=== PATIENT | female | born 1965 | race Caucasian/White ===

== ENCOUNTER 2017-08-20 07:22 | Day surgery (SDC) | payer OTHER, SELFPAY ==
[2017-08-20 08:22] VITALS: BP 147/88; PULSE 87; RESP 16; TEMP 36.2; O2SAT 100; BMI 24.4
--- NOTE | 2017-08-20 09:04 | HP.PCM_ITS ---
Past Medical/Surgical History - Planned Operation Planned Operative Procedure/s: colonoscopy Date of Operative Procedure: 08/20/17 Permit Signed: No S.O.S: No Is This Patient Having a Total Joint: No - Previous Hospitalizations/Surgeries HX Hospitalizations: No HX of Surgeries: colonoscopy. hysterectomy. kidney stone Any Problems With Anesthesia: No You/Your Family Experience Fever (Hyperthermia) With Anes: No Cholinesterase deficiency: No - Cardiovascular Hx Chest Pain within Last 2 months: No Hx of Irregular Heartbeat and/or Afib: No Hx Heart Attack: No Hx Congestive Heart Failure: No Hx Rheumatic Fever: No Hx Hypertension: No Hx Internal Defibrillator: No Hx Pacemaker: No Hx Cardiac Catheterization: No Hx Cardiac Surgery/Stents/Etc.: No Hx Stress Test: No HX Edema: No Hx Pain in Legs when Walking/Leg Cramps: Yes - Respiratory Chronic Cough: No HX of Shortness of Breath: Yes - sob with 2 flights of stairs Hoarseness: No Hx Chronic Obstructive Pulmonary Disease (COPD): No Hx Asthma: No Hx Emphysema: No Hx Sleep Apnea: No Hx Oxygen Use at Home: No Hx Respiratory Tract Infection/Cold (presently): No Do You Snore Loudly (louder than talking or can be heard): Yes Do You Often Feel Tired/ Fatigued/ Sleepy Dring Daytime?: No Has Anyone Observed You Stop Breathing During Sleep?: No Result (for STOP score): Negative Hx Smoking: No Smoking Status: Never smoker - Gastrointestinal Hx Gastroesophageal Reflux: Yes Controlled With Meds: No - no meds Hx Gastrointestinal Disorders: Yes - ibs Hx Gastrointestinal Bleed: Yes - in the past Hx Ulcer: No - . Hx Hiatal Hernia: No Difficulty Chewing/Swallowing: No Recent Onset of Swallowing Problems: No Special diet followed at home: No Hx Unplanned Weight Loss of 20#: No HX Unplanned Weight Gain of 20#: No - Neurological Hx Seizures: No HX Syncope/Blackout Spells/Unconsciousness: No Hx CVA/Stroke: No Hx Transient Ischemic Attacks (TIA): No Hx Multiple Sclerosis: No Hx Parkinson's Disease: No Hx Head/Neck Injury: No Hx Headaches: No Hx Back Injury/Pain: No Recent Onset of Speech Difficulty: No Restless Legs: No Does patient have nerve stimulator: No Patient instructed to have device shut off: No Rep notified?: No - Blood Disorder Hx Leukemia: No Bleeding Tendencies: No Hx Deep Vein Thrombosis: No Hx High Cholesterol: No Blood Transmitted Disease: No Hx Hepatitis: No Hx Cirrhosis: No Hx Anemia: No Hx Blood Disorders: No - Reproduction : No Is Patient Lactating: No Hx Hysterectomy: Yes Hx Tubal Ligation: No Are You Post Menopause: Yes - Genitourinary Hx Renal Disease: No - Musculoskeletal Hx Arthritis: Yes Hx Rheumatoid Arthritis: No Hx Gout: No Recent Onset of an Orthopedic Problem: No - Endocrine Hx Diabetes: No Thyroid Disease: No Hx Steroid Therapy: No - Psycho/Social Hx Substance Use: No Hx Alcohol Use: No Hx Anxiety: No Hx Depression: No Mental Illness: No Hx Dementia: No - Miscellaneous Hx Cancer: No Recent Exposure to Contagious Disease: No Active MRSA: No Hx of C-Diff: No Any Loose Teeth: No Allergies NSAIDS (Non-Steroidal Anti-Inflamma Allergy (Verified 08/18/17 16:08) Hives pseudoephedrine Allergy (Verified 08/18/17 16:08) slurred speech/confusion Home Medications Medication Instructions Recorded Calcium Carbonate/Vitamin D3 1 each PO DAILY 08/18/17 [Calcium 500-Vit D3 600 Tablet] Multivitamin [Multiple Vitamins] 1 each PO DAILY 08/18/17 [place]-3 Fatty Acids/Fish Oil [Fish 1 each PO DAILY 08/18/17 Oil 1,000 mg Capsule] - Discharge Is Pt Admitted From a Halfway, or a Halfway: No Who Could Help: family After D/C, Where Do you Plan to Go: Return Home - Physical Exam General: Alert, Oriented x3, Cooperative Lungs: Normal air movement Cardiovascular: Regular rate, Regular Rhythm Abdomen: Soft, Non Tender, Non-Distended Vital Signs Temp Pulse Resp BP Pulse Ox 97.1 F L 87 16 147/88 H 100 08/20/17 08:22 08/20/17 08:22 08/20/17 08:22 08/20/17 08:22 08/20/17 08:22 Oxygen Delivery Method Room Air Weight: 151 lb 7.321 oz Body Mass Index (BMI) 24.4 Assessment/Plan 52-year-old female here for screening colonoscopy 1. Patient reports she had a normal colonoscopy 6 years ago. She does have a family history of colon cancer in her father at a young age. She is not currently having any issues and no blood in her stool or abdominal pain. She has no inadvertent weight loss. 2. I explained endoscopy in detail to the patient. I explained the risks including but not limited to stroke or heart attack with anesthesia, perforation of the GI tract, bleeding, infection. I explained that any of these could necessitate further emergency surgery. The patient understands and all questions were answered sufficiently. The patient wishes to proceed with procedure. Pablito Morfin MD Pager: [facility] [address], [facility] [address] [place] [address] Office: Surgery Risks - Colonoscopy Risks Include but are not Limited To: Risks include but are not limited to: Bleeding, perforation requiring further surgery, inability to complete colonoscopy requiring barium enema.
[2017-08-20 09:36] VITALS: BP 135/91; BP 147/88; PULSE 89; RESP 16; TEMP 36.6; O2SAT 100
--- NOTE | 2017-08-20 09:37 | PCM.OPRPT ---
Problem List (1) Screen for colon cancer Status: Acute Report of Operation Date of Procedure: 08/20/17 Pre-Operative Diagnosis: Screening colonoscopy, family history of colon cancer Post-Operative Diagnosis: Normal colonoscopy Surgery/Procedure Performed:: Colonoscopy Specimen's removed: None Description of Procedure: The major risks and benefits associated with the procedure were explained to the patient in detail. The patient verbalized understanding and agreement with the same. The patient was brought to the endoscopy suite. After adequate sedation was achieved, the patient was placed in the left lateral decubitus position and a digital rectal exam was performed. This examination was within normal limits. A well-lubricated colonoscope was then inserted into the rectum and advanced under direct visualization to the level of the cecum. The bowel prep was good. The cecum was identified by both visual and anatomic landmarks. A photograph was taken of the end of the cecum. The scope was then fully withdrawn while examining the color, texture, anatomy and integrity of the mucosa from the cecum to the anal canal. The findings were consistent with normal colonic mucosa. Over 6 minutes were taken to examine the colonic mucosa. Upon reaching the rectum the scope was retroflexed to examine the distal rectal vault. The scope was then straightened and was completely retrieved upon exiting the anal canal and the procedure was terminated. The patient was then transferred to the recovery room in stable condition. Recommendations for follow up: 5 years due to family history
[2017-08-20 09:41] VITALS: BP 141/90; BP 147/88; PULSE 85; RESP 16; O2SAT 99
[2017-08-20 09:46] VITALS: BP 136/93; BP 147/88; PULSE 79; RESP 16; O2SAT 100
[2017-08-20 09:51] VITALS: BP 140/94; BP 147/88; PULSE 81; RESP 16; TEMP 36.4; O2SAT 99
[2017-08-20 10:22] VITALS: BP 147/88
== END 2017-08-20 10:20 | disposition home or self-care (01) ==
LOC: EN 07:24 → AC 07:25
PROVIDERS: Family Provider Preventive Medicine Occupational Medicine; PCP Preventive Medicine Occupational Medicine; Visit Provider Surgery
PROC: 0DJD8ZZ Inspection of Lower Intestinal Tract, Via Natural or Artificial Opening Endoscopic (ICD-10-PCS; CPT 45378; principal; 2017-08-20 08:55)
DX: Z12.11 Encounter for screening for malignant neoplasm of colon (principal); Z80.0 Family history of malignant neoplasm of digestive organs; K58.9 Irritable bowel syndrome, unspecified; M19.90 Unspecified osteoarthritis, unspecified site
CPT/HCPCS: 45378; J7120

== ENCOUNTER 2022-10-02 11:46 | Emergency (ER) | payer OTHER, SELFPAY ==
[2022-10-02 11:46] VITALS: BP 145/84; PULSE 79; RESP 16; TEMP 36.3; O2SAT 100; BMI 26.6
--- NOTE | 2022-10-02 13:18 | EKG12_ITS ---
Test Reason : Blood Pressure : / mmHG Vent. Rate : 066 BPM Atrial Rate : 066 BPM P-R Int : 144 ms QRS Dur : 084 ms QT Int : 392 ms P-R-T Axes : 048 012 039 degrees QTc Int : 410 ms Normal sinus rhythm with sinus arrhythmia Normal ECG Confirmed by ALFONSO GUERRERO, EMMA ([id number]), make up editor AUSTYN DE SANTIAGO ([id number]) on 10/05/2022 12:20:28 P M Referred By: MICA Confirmed By:FRANCESCO HAMILTON MD
--- NOTE | 2022-10-02 13:19 | EDS_ITS ---
HPI <ADAMS Thomas - Last Filed: 10/02/22 14:44> History of Present Illness Chief Complaint: General Illness Narrative Narrative: Patient presents today with feelings of lightheadedness and muscular cramps in her legs that she noticed earlier this afternoon. She states that she has only drink coffee today and is not sure if she is dehydrated. She states she does sometimes get a little lightheaded when standing up or after bending over but today felt that way while she was standing. He has felt this way intermittently over the past month or so but today is worse. She states the only thing she has had to eat today is 1 eggo waffle and a bag of cheese suzie and is a borderline diabetic. PMH includes hypertension. She denies any fever, chills, recent illness, chest pain, abdominal pain, nausea, vomiting, diarrhea, and urinary symptoms. PFSH <ADAMS Thomas - Last Filed: 10/02/22 14:44> PFSH Medical History (Updated 10/02/22 @ 14:30 by ADAMS Thomas) Hypertension IBS (irritable bowel syndrome) Rheumatoid arthritis Tachycardia Home Medications multivitamin (Multiple Vitamins tablet) 1 ea PO DAILY 08/18/17 [History Last Taken Unknown] omega-3 fatty acids-fish oil 340 mg-1,000 mg capsule (Fish Oil) 1 ea PO DAILY 08/18/17 [History Last Taken Unknown] lisinopril 2.5 mg tablet 2.5 mg PO DAILY 10/02/22 [History Last Taken Unknown] loratadine 10 mg tablet (Claritin) 10 mg PO DAILY 10/02/22 [History Last Taken Unknown] metoprolol succinate 50 mg tablet,extended release 24 hr 50 mg PO DAILY 10/02/22 [History Last Taken Unknown] Allergy/AdvReac Type Severity Reaction Status Date / Time NSAIDS (Non-Steroidal Allergy Hives Verified 10/02/22 11:48 Anti-Inflamma pseudoephedrine Allergy slurred Verified 10/02/22 11:48 speech/confusion Surgical History (Updated 10/02/22 @ 13:39 by Yari Sotelo) H/O: hysterectomy Social History Smoking Status: Never smoker ROS <ADAMS Thomas - Last Filed: 10/02/22 14:44> ROS ED Constitutional Constitutional ED: Denies chills, fever(s) or sweats Eyes Eyes: Denies blurry vision or diplopia Cardiovascular Cardiovascular: Denies chest pain or palpitations Respiratory/Chest Respiratory/Chest: Denies cough or dyspnea Gastrointestinal Gastrointestinal: Denies abdominal pain, diarrhea, nausea or vomiting Genitourinary Genitourinary ED: Denies dysuria, hematuria or urinary urgency Musculoskeletal Musculoskeletal: Denies arthralgias, back pain, myalgias or neck pain Integumentary Denies abscess, Abrasions or rash Neurologic Neurologic: Denies confusion, dizziness or paresthesias Psychiatric Psychiatric: Denies anxiety, depression, suicidal ideation or suicidal thoughts EXAM <ADAMS Thomas - Last Filed: 10/02/22 14:44> Physical Exam Const Vital Signs: 10/02/22 11:46 10/02/22 13:29 10/02/22 13:39 Temperature 97.4 F L Temperature Source Temporal Pulse Rate 79 Pulse Rate [Lying] 62 Pulse Rate [Sitting (for 1 minute prior to obtaining)] 59 L Pulse Rate [Standing (for 1 minute prior to obtaining)] 62 Respiratory Rate 16 Respiratory Effort Normal Non-Labored Respiratory Pattern Normal Blood Pressure 145/84 H Blood Pressure [Lying] 131/74 H Blood Pressure [Sitting (for 1 minute prior to obtaining)] 140/77 H Blood Pressure [Standing (for 1 minute prior to obtaining)] 130/82 H Blood Pressure Mean 104 Blood Pressure Mean [Lying] 93 Blood Pressure Mean [Sitting (for 1 minute prior to obtaining)] 98 Blood Pressure Mean [Standing (for 1 minute prior to obtaining)] 98 Pulse Ox 100 Oxygen Delivery Method Room Air Positive well nourished, well developed and no apparent distress General Appearance ED: well developed HEENT Reports normocephalic and head/scalp atraumatic Mouth ED: Yes moist mucous membranes normal Eyes PERRL and EOMs intact bilaterally Neck full ROM and supple Chest Wall inspection of chest normal Resp normal respiratory effort and clear to auscultation bilaterally Cardio regular rate and regular rhythm GI soft to palpation, non-tender, non-distended and no masses Back/Spine normal ROM and normal to inspection Extremity normal to inspection and full ROM Neuro oriented x3, CN's II-XII intact bilaterally, moves all extremities, no focal motor deficits and no sensory deficits noted Sensorium / Orientation: awake and alert Psych mental status grossly normal and thought process normal Skin no rashes or lesions noted and no wounds <Dr. Shantal Doe MD - Last Filed: 10/02/22 21:23> Physical Exam Const Vital Signs: 10/02/22 11:46 10/02/22 13:29 10/02/22 13:39 Temperature 97.4 F L Temperature Source Temporal Pulse Rate 79 Pulse Rate [Lying] 62 Pulse Rate [Sitting (for 1 minute prior to obtaining)] 59 L Pulse Rate [Standing (for 1 minute prior to obtaining)] 62 Respiratory Rate 16 Respiratory Effort Normal Non-Labored Respiratory Pattern Normal Blood Pressure 145/84 H Blood Pressure [Lying] 131/74 H Blood Pressure [Sitting (for 1 minute prior to obtaining)] 140/77 H Blood Pressure [Standing (for 1 minute prior to obtaining)] 130/82 H Blood Pressure Mean 104 Blood Pressure Mean [Lying] 93 Blood Pressure Mean [Sitting (for 1 minute prior to obtaining)] 98 Blood Pressure Mean [Standing (for 1 minute prior to obtaining)] 98 Pulse Ox 100 Oxygen Delivery Method Room Air MDM <ADAMS Thomas - Last Filed: 10/02/22 14:44> [facility] Narrative Medical decision making narrative: Patient presenting today due to feelings of lightheadedness she had earlier this afternoon. She is well-appearing and in no acute distress. She has felt this way over the past few months intermittently but today says it is worse. She is also having muscle cramps in her legs. She states she could be dehydrated as she has only had a couple coffee today and no water. Patient is also borderline diabetic and has only had a bag of chips and a waffle to eat today. CBC will be obtained to rule out leukocytosis and anemia, BMP to rule out electrolyte abnormality, dehydration, and to assess kidney function. Patient was given IV fluids. Orthostats are normal. On reexamination she is feeling better and she has been reassured. She has been under a lot of stress recently and her dad just had a heart attack this week. She is having difficult time at her job and feels overworked. I think patient's symptoms can be attributed to the stress she is under as well as not eating and drinking enough throughout the day. She will be discharged home in stable condition and is to follow-up with her PCP. She is comfortable with plan. Lab Data Attestation: I reviewed the patient's lab results. Lab results narrative: BC unremarkable, BMP unremarkable Labs: Laboratory Results - last 24 hr 10/02/22 10/02/22 13:32 13:32 WBC 5.1 RBC 4.43 Hgb 13.1 Hct 39.6 MCV 89.4 MCH 29.6 MCHC 33.1 RDW Std Deviation 37.9 RDW Coeff of Jose 11.7 Plt Count 211 MPV 11.3 Immature Gran % (Auto) 0.400 Neut % (Auto) 58.8 Lymph % (Auto) 28.0 [place] % (Auto) 9.6 Eos % (Auto) 2.4 Baso % (Auto) 0.8 Absolute Neuts (auto) 3.0 Absolute Lymphs (auto) 1.43 Nucleated RBC % 0 Sodium 141 Potassium 3.8 Chloride 107 Carbon Dioxide 26.0 Anion Gap 8 BUN 15 Creatinine 0.61 Estim Creat Clear Calc 93.77 Est GFR (MDRD) Af Amer 132 Est GFR (MDRD) Non-Af 109 BUN/Creatinine Ratio 24.8 H Glucose 138 H Calcium 9.4 EKG Initial EKG: Comments: 66 bpm, normal sinus rhythm, no ST elevation. Reviewed and interpreted by attending ED physician. <Dr. Shantal Doe MD - Last Filed: 10/02/22 21:23> [facility] Lab Data Labs: Laboratory Results - last 24 hr 10/02/22 10/02/22 13:32 13:32 WBC 5.1 RBC 4.43 Hgb 13.1 Hct 39.6 MCV 89.4 MCH 29.6 MCHC 33.1 RDW Std Deviation 37.9 RDW Coeff of Jose 11.7 Plt Count 211 MPV 11.3 Immature Gran % (Auto) 0.400 Neut % (Auto) 58.8 Lymph % (Auto) 28.0 [place] % (Auto) 9.6 Eos % (Auto) 2.4 Baso % (Auto) 0.8 Absolute Neuts (auto) 3.0 Absolute Lymphs (auto) 1.43 Nucleated RBC % 0 Sodium 141 Potassium 3.8 Chloride 107 Carbon Dioxide 26.0 Anion Gap 8 BUN 15 Creatinine 0.61 Estim Creat Clear Calc 93.77 Est GFR (MDRD) Af Amer 132 Est GFR (MDRD) Non-Af 109 BUN/Creatinine Ratio 24.8 H Glucose 138 H Calcium 9.4 Treatment and Re-Evaluation :: Patient seen and evaluated with RODRIGUE. I personally interviewed and examined the patient. I was involved in all aspects of patient's orders, interpretation of results, and treatment. Patient presents secondary to fatigue with lightheadedness and some muscle cramping in her legs. She is concerned that she may be dehydrated. She does admit that she is been under a lot of stress lately and thinks that could be contributing to her symptoms as well. Patient sitting upright in bed no acute distress. Nontoxic-appearing. Head and neck examination is unremarkable. Heart is regular rate and rhythm. Lung sounds are clear. Abdomen is soft and nontender. Neuro exam is normal. Patient placed on secured entrance monitor. Lab work reviewed and reveals no acute findings with no significant signs of dehydration. EKG is normal. Patient has been given a liter of IV fluids here on repeat evaluation she is resting comfortably. Test results are discussed with her as well as at bedside. She will continue to monitor her symptoms and return instructions have been provided. Discharge Plan Triage Chief Complaint: General Illness ED Midlevel Provider: Nicole Jacobo ED Provider: Shantal Doe Dx/Rx/DC Orders Clinical Impression: Light-headedness Instructions: ED Dizziness, Uncertain Cause Prescriptions: No Action multivitamin [Multiple Vitamins] 1 EACH tablet 1 ea PO DAILY Fish Oil 1 EACH capsule 1 ea PO DAILY metoprolol succinate 50 mg tablet extended release 24 hr 50 mg PO DAILY lisinopril 2.5 mg tablet 2.5 mg PO DAILY loratadine [Claritin] 10 mg Tablet 10 mg PO DAILY Primary Care Provider: John Ahn Referrals: John Ahn DO [Primary Care Provider] - 3-5 Days Activity Restrictions/Additional Instructions: Patient to drink plenty of water each day and follow-up with your PCP. Please return for any worsening of symptoms. Disposition Disposition: Home, Self Care Discharge Date/Time: 10/02/22 14:58
[2022-10-02 13:29] VITALS: BP 130/82; BP 131/74; BP 140/77; PULSE 59; PULSE 62
[2022-10-02] MEDS: 0.9% Normal Saline 1,000 ML 999 ML IV (13:34)
[2022-10-02 13:49] LABS: Absolute Lymphocyte Count 1.43 X10^3/uL (0.83-4.51); Basophil# 0.04 X10^3/uL; Basophil% 0.8 % (0-1); Eosinophil# 0.12 X10^3/uL; Eosinophils% 2.4 % (0-5); Hematocrit 39.6 % (37-47); Hemoglobin 13.1 g/dL (12.0-15.0); Lymphocyte # 1.43 X10^3/ul (0.83-4.51); Mean Corp Hgb Conc 33.1 g/dL (32-36); Mean Corpuscular Hgb 29.6 pg (27.0-32.0); Mean Corpuscular Volume 89.4 fL (81-99); Mean Platelet Vol. 11.3 fl (6.2-12.0); Monocyte# 0.49 X10^3/uL; Monocyte% 9.6 % (0-10); NRBC Flagged by Analyzer 0 % (0-5); Neutrophil % 58.8 % (47-70); Platelet Count 211 K/mm3 (150-450); RBC Distribution Width CV 11.7 % (11.6-14.6); RBC Distribution Width SD 37.9 fl (35.1-43.9); Red Blood Count 4.43 M/mm3 (4.2-5.4); White Blood Count 5.1 K/mm3 (4.4-11.0)
[2022-10-02 14:04] LABS: Anion Gap 8 (5-15); BUN 15 mg/dL (7-18); BUN/Creat Ratio 24.8 RATIO (10-20); Calcium,Total 9.4 mg/dL (8.5-10.1); Chloride 107 mmol/L (98-107); Creatinine, Serum 0.61 mg/dL (0.55-1.02); EST Glomerular Filtration Rate 109 mL/min (>60); Est Glom Filt Rate - Afr Amer 132 mL/min (>60); Estimated Creatinine Clearance 93.77 ml/min; Glucose 138 mg/dL (74-106); Potassium 3.8 mmol/L (3.5-5.1); Sodium Level 141 mmol/L (136-145)
== END 2022-10-02 14:58 | disposition home or self-care (01) ==
PROVIDERS: Physician Assistant; Emergency Provider Emergency Medicine; PCP Preventive Medicine Occupational Medicine; Visit Provider Emergency Medicine
DX: R42 Dizziness and giddiness (principal); R73.03 Prediabetes; I10 Essential (primary) hypertension; Z79.899 Other long term (current) drug therapy
CPT/HCPCS: 80048; 85025; 93005; 96360; 99284; J7030; A4216